=== PATIENT | male | born 1935 | race Caucasian/White ===

== ENCOUNTER 2020-06-07 14:34 | Inpatient (IN) ==
[2020-06-07] MEDS ORDERED: LACTATED RINGERS 1,000 ML IV ONE (15:05)
--- NOTE | 2020-06-07 15:09 | Emergency Department Note ---
Weakness HPI General Chief complaint: Weakness Stated complaint: Weakness since 1030. Time Seen by Provider: 06/07/20 15:00 Source: patient, family and RN notes reviewed Mode of arrival: wheelchair Limitations: altered mental status History of Present Illness HPI Narrative: Narrative: This is a demented male brought in by his who has been feeling generalized weakness for about the last 6 hours. He is incontinent of urine and noted blood in his depends. He does not complain of pain. He has had no cough or shortness of breath. He does have a temperature here as high as 104. No nausea or vomiting. Complaint: generalized weakness Onset (ago): hour(s) Duration: constant Location: generalized Migration: none Severity: moderate Improves with: none Worsens with: none Associated symptoms: Reports confusion; Denies chest pain, diaphoresis, dysuria, nausea/vomiting and shortness of breath Related Data Home Medications Medication Instructions Recorded Confirmed grape seed extract PO QDAY 05/05/18 06/05/20 turmeric root extract PO BID 05/05/18 06/05/20 donepezil 5 mg tablet 10 mg PO QDAY tab 07/26/19 06/05/20 fluticasone propionate INTRANASAL PRN 07/26/19 06/05/20 multivitamin 1 tab PO QDAY 07/26/19 06/05/20 Previous Rx's Medication Instructions Recorded tamsulosin 0.4 mg capsule 0.4 mg PO QDAY #90 cap 12/20/19 lisinopril 10 mg tablet 10 mg PO QDAY #90 tab 02/15/20 acyclovir 800 mg tablet 800 mg PO 5XD #35 tab 04/03/20 memantine 10 mg tablet 10 mg PO BID #180 tab 05/15/20 levothyroxine 75 mcg tablet 75 mcg PO QDAY #90 tab 05/30/20 Allergies Allergy/AdvReac Type Severity Reaction Status Date / Time hydrocodone Allergy Unknown Nausea Verified 06/05/20 13:01 Review of Systems ROS ROS Narrative: Narrative: Limitations: ROS unobtainable due to patients medical condition [facility] Narrative Patient History Narrative: Narrative: Medical/Surgical/Family History All Active Problems (Updated 06/07/20 @ 19:17 by Estuardo Lindquist MD) Pneumonia (Acute) Urinary tract infection (Acute) Annual physical exam (Acute) Parkinsonism (Acute) Medicare annual wellness visit, initial (Acute) Herpes zoster with ophthalmic complication (Acute) Herpes zoster ophthalmicus (Acute) Generalized weakness (Acute) Cellulitis (Acute) Skin tear of left forearm without complication (Acute) Dementia (Chronic) Hx of vasectomy (Acute) Hx of tonsillectomy (Acute) Hx of inguinal hernia repair (Acute) Hx of esophagogastroduodenoscopy (Acute) Closed rib fracture (Acute) Hypothyroidism (Acute) Hypertension, essential (Acute) Hyperlipidemia (Acute) Closed fracture of foot (Acute) Medical History (Updated 06/07/20 @ 19:17 by Estuardo Lindquist MD) Annual physical exam (Acute) Closed fracture of foot (Acute) left Closed rib fracture (Acute) Dementia (Chronic) Herpes zoster ophthalmicus (Acute) Herpes zoster with ophthalmic complication (Acute) Hyperlipidemia (Acute) Hypertension, essential (Acute) Hypothyroidism (Acute) Medicare annual wellness visit, initial (Acute) Parkinsonism (Acute) Surgical History Hx of esophagogastroduodenoscopy (Acute) Hx of inguinal hernia repair (Acute) Hx of tonsillectomy (Acute) Hx of vasectomy (Acute) Family History Mother Malignant neoplasm of pancreas Unknown No family history of cardiac disease Social History Smoking Status: Never smoker Alcohol Intake Frequency: a few times a week Substance Use: does not use Exam Narrative Narrative: Narrative: General Limitations: altered mental status Head Head: Present atraumatic, normocephalic and normal inspection Eye Eye: Present normal appearance and EOMI; Absent scleral icterus and conjunctival injection ENT ENT: Present normal oropharynx and mucous membranes moist Neck Neck: Present normal inspection and full ROM Chest Chest: Present normal inspection and symmetric chest wall rise Respiratory Respiratory: Present normal lung sounds bilaterally; Absent respiratory distress, rales/crackles and wheezes Cardiovascular Cardiovascular: Present regular rate, normal rhythm and normal heart sounds Adbominal Abdominal: Present soft; Absent distention and tenderness Extremities Extremities: Present normal inspection and full ROM; Absent pedal edema and pretibial edema Neurological Neurological: Present alert Skin Skin: Present warm (WNL) and dry; Absent diaphoresis Course Vital Signs Vital signs: Vital Signs Temperature 104.2 F H 06/07/20 14:35 Pulse Rate 108 H 06/07/20 14:35 Respiratory Rate 22 06/07/20 14:35 Blood Pressure 138/82 06/07/20 14:35 Pulse Oximetry (%) 97 06/07/20 14:35 Temperature 102.0 F H 06/07/20 17:52 Pulse Rate 79 06/07/20 17:13 Respiratory Rate 16 06/07/20 17:13 Blood Pressure 141/86 06/07/20 17:13 Pulse Oximetry (%) 97 06/07/20 14:35 MDM MDM Narrative Medical decision making narrative: Narrative: This patient has urosepsis and pneumonia and will be admitted to the hospital by Dr. Abarca. Lab Data Lab results reviewed: Yes I reviewed the patient's lab results. Lab results narrative: White count was elevated at 17,000 and lactic acid was negative. Urinalysis also consistent with UTI. Result diagrams: 06/07/20 15:22 06/07/20 15:22 Labs: Lab Results 06/07/20 06/07/20 06/07/20 Range/Units 15:22 15:22 15:22 WBC 17.0 H (4.5-11.0) K/mcL RBC 4.90 (4.50-5.90) M/mcL Hgb 15.4 (13.5-16.5) g/dL Hct 45.4 (41.0-55.0) % MCV 92.7 (80.0-100.0) fL MCH 31.4 (26.0-34.0) pg MCHC 33.9 (31.0-36.0) g/dL RDW 13.3 (11.5-14.5) % Plt Count 242 (140-440) K/mcL MPV 10.0 (7.4-10.4) fL Neut % (Auto) 85.0 H (38.0-78.0) % Lymph % (Auto) 6.2 L (15.0-49.0) % [place] % (Auto) 7.5 (1.0-12.0) % Eos % (Auto) 0.8 (0.0-7.0) % Baso % (Auto) 0.5 (0.0-2.0) % Lymph # (Auto) 1.05 L (1.50-4.80) K/mcL [place] # (Auto) 1.28 H (0.10-0.90) K/mcL Eos # (Auto) 0.13 (0.00-0.70) K/mcL Baso # (Auto) 0.09 (0.00-0.20) K/mcL Absolute Neutrophils 14.42 H (1.80-8.00) K/mcL VBG Lactic Acid 1.5 (0.5-2.0) mmol/L Sodium 136 (133-145) mmol/L Potassium 4.3 (3.3-5.1) mmol/L Chloride 99 (96-108) mmol/L Carbon Dioxide 24 (22-30) mmol/L Anion Gap 13.0 (8.0-16.0) BUN 17 (8-23) mg/dL Creatinine 1.0 (0.7-1.2) mg/dL GFR Calculation 69 Glucose 107 H (70-105) mg/dL Calcium 9.2 (8.6-10.4) mg/dL Total Bilirubin 0.4 (0.1-1.0) mg/dL AST 17 (<40) U/L ALT 8 (<40) U/L Alkaline Phosphatase 77 (39-117) U/L Total Protein 7.7 (5.9-8.4) gm/dL Albumin 4.4 (3.2-5.2) gm/dL Globulin 3.3 (2.2-3.7) gm/dL Albumin/Globulin Ratio 1.3 (1.0-2.3) Urine Color Urine Appearance (Clear) Urine pH (5.0-9.0) Ur Specific [place] (1.000-1.035) Urine Protein (Negative) mg/dL Urine Glucose (UA) (Negative) mg/dL Urine Ketones (Negative) mg/dL Urine Occult Blood (Negative) mg/dL Urine Nitrate (Negative) Urine Bilirubin (Negative) mg/dL Urine Urobilinogen mg/dL Ur Leukocyte Esterase (Negative) /ug Urine RBC (0-1) /hpf Urine WBC (0-4) /hpf Ur Squamous Epith Cells (0-4) /hpf Amorphous Crystals (None) /hpf Urine Bacteria (0) /hpf Urine Mucus (None) /hpf Ur Culture Indicated? 06/07/20 Range/Units 16:23 WBC (4.5-11.0) K/mcL RBC (4.50-5.90) M/mcL Hgb (13.5-16.5) g/dL Hct (41.0-55.0) % MCV (80.0-100.0) fL MCH (26.0-34.0) pg MCHC (31.0-36.0) g/dL RDW (11.5-14.5) % Plt Count (140-440) K/mcL MPV (7.4-10.4) fL Neut % (Auto) (38.0-78.0) % Lymph % (Auto) (15.0-49.0) % [place] % (Auto) (1.0-12.0) % Eos % (Auto) (0.0-7.0) % Baso % (Auto) (0.0-2.0) % Lymph # (Auto) (1.50-4.80) K/mcL [place] # (Auto) (0.10-0.90) K/mcL Eos # (Auto) (0.00-0.70) K/mcL Baso # (Auto) (0.00-0.20) K/mcL Absolute Neutrophils (1.80-8.00) K/mcL VBG Lactic Acid (0.5-2.0) mmol/L Sodium (133-145) mmol/L Potassium (3.3-5.1) mmol/L Chloride (96-108) mmol/L Carbon Dioxide (22-30) mmol/L Anion Gap (8.0-16.0) BUN (8-23) mg/dL Creatinine (0.7-1.2) mg/dL GFR Calculation Glucose (70-105) mg/dL Calcium (8.6-10.4) mg/dL Total Bilirubin (0.1-1.0) mg/dL AST (<40) U/L ALT (<40) U/L Alkaline Phosphatase (39-117) U/L Total Protein (5.9-8.4) gm/dL Albumin (3.2-5.2) gm/dL Globulin (2.2-3.7) gm/dL Albumin/Globulin Ratio (1.0-2.3) Urine Color Yellow Urine Appearance Hazy A (Clear) Urine pH 5.0 (5.0-9.0) Ur Specific [place] 1.018 (1.000-1.035) Urine Protein 100 A (Negative) mg/dL Urine Glucose (UA) Negative (Negative) mg/dL Urine Ketones Negative (Negative) mg/dL Urine Occult Blood >=1.0 A (Negative) mg/dL Urine Nitrate Negative (Negative) Urine Bilirubin Negative (Negative) mg/dL Urine Urobilinogen Negative mg/dL Ur Leukocyte Esterase 75 A (Negative) /ug Urine RBC > 182 H (0-1) /hpf Urine WBC 111 H (0-4) /hpf Ur Squamous Epith Cells 0 (0-4) /hpf Amorphous Crystals Few A (None) /hpf Urine Bacteria None (0) /hpf Urine Mucus Mod A (None) /hpf Ur Culture Indicated? yes Radiology Data Radiology results reviewed: Yes I reviewed the patient's radiology results. Radiology results narrative: Chest x-ray shows some bibasilar infiltrates Discharge Plan Patient/Caregiver Discharge Instructions Pt seen by DIRECTOR OF QUALITY/PA only: No Clinical Impression: Pneumonia, Urinary tract infection Patient Disposition: Xfer As Outpt/Obs ([facility]) Follow up with: Nathan Mcdonough MD [Primary Care Provider] - Prescriptions: No Action tamsulosin [Flomax] 0.4 mg capsule 0.4 mg PO QDAY Qty: 90 RF: 1 lisinopril [Prinivil] 10 mg tablet 10 mg PO QDAY Qty: 90 RF: 1 memantine [Namenda] 10 mg tablet 10 mg PO BID Qty: 180 RF: 1 levothyroxine [Synthroid] 75 mcg tablet 75 mcg PO QDAY Qty: 90 RF: 1 turmeric root extract PO BID RF: 0 grape seed extract PO QDAY RF: 0 donepezil 5 mg tablet 10 mg PO QDAY RF: 0 multivitamin tablet 1 tab PO QDAY RF: 0 fluticasone propionate intranasal PRNRF: 0 acyclovir 800 mg tablet 800 mg PO 5XD Qty: 35 RF: 0
--- NOTE | 2020-06-07 15:49 | XRay Report ---
CLINICAL INFORMATION: fever COMPARISON: 03/28/2020 FINDINGS: Mild cardiomegaly is unchanged. Mild thoracic aortic ectasia also stable. The remaining mediastinum and pulmonary vessels are normal. Mild bilateral lower lobe airspace disease could indicate developing infiltrate. No effusion IMPRESSION: Possible developing lower lobe infiltrates. Interpreted and Authenticated by: Elie Torrez 06/07/20
[2020-06-07 16:14] LABS: Basophils # (Auto) 0.09 K/mcL (0.00-0.20); Basophils % (Auto) 0.5 % (0.0-2.0); Eosinophils # (Auto) 0.13 K/mcL (0.00-0.70); Eosinophils % (Auto) 0.8 % (0.0-7.0); Hematocrit 45.4 % (41.0-55.0); Hemoglobin 15.4 g/dL (13.5-16.5); Lymphocytes # (Auto) 1.05 K/mcL (1.50-4.80); Lymphocytes % (Auto) 6.2 % (15.0-49.0); Mean Cell Volume 92.7 fL (80.0-100.0); Mean Corpuscular HGB Conc 33.9 g/dL (31.0-36.0); Monocytes # (Auto) 1.28 K/mcL (0.10-0.90); Monocytes % (Auto) 7.5 % (1.0-12.0); Platelet Count 242 K/mcL (140-440); Red Cell Distribution Width 13.3 % (11.5-14.5)
[2020-06-07] MEDS ORDERED: LEVOFLOXACIN 750 MG/150 ML BAG IV ONE (16:28)
[2020-06-07] MEDS ORDERED: cefTRIAXone 1 GM VIAL IV ONE ×2 (16:28→22:02)
[2020-06-07 16:33] LABS: ALT/SGPT 8 U/L (<40); AST/SGOT 17 U/L (<40); Albumin 4.4 gm/dL (3.2-5.2); Albumin/Globulin Ratio 1.3 (1.0-2.3); Alkaline Phosphatase 77 U/L (39-117); Bilirubin,Total 0.4 mg/dL (0.1-1.0); Blood Urea Nitrogen 17 mg/dL (8-23); Calcium 9.2 mg/dL (8.6-10.4); Carbon Dioxide 24 mmol/L (22-30); Chloride 99 mmol/L (96-108); Globulin 3.3 gm/dL (2.2-3.7); Glomerular Filtration Rate 69; Glucose 107 mg/dL (70-105)
[2020-06-07] MEDS ORDERED: ACETAMINOPHEN 325 MG TABLET PO ONE (17:30)
[2020-06-07 17:50] LABS: Appearance,Urine HAZY (Clear); Bilirubin,Urine Negative (Negative); Color,Urine YELLOW; Culture Indicated,Urine yes; Glucose,Urine (UA) Negative (Negative); Ketones,Urine Negative (Negative); Leukocyte Esterase,Urine 75 /ug (Negative); Mucus,Urine MOD /hpf; Nitrate,Urine Negative (Negative); Protein,Urine 100 mg/dL (Negative); Specific Gravity,Urine 1.018 (1.000-1.035); Urine Amorphous Crystals FEW /hpf; Urine Blood >=1.0 mg/dL (Negative); Urine RBC > 182 /hpf (0-1); Urine Squamous Epithelial Cell 0 /hpf (0-4); Urine WBC 111 /hpf (0-4); Urobilinogen,Urine Negative
--- NOTE | 2020-06-07 19:04 | Internal Med History&Physical ---
HPI History of Present Illness Patient information: Note initiated : 06/07/20 at 7:04 pm Service Date, if different from initiated Date: [] Patient: Kristi Kennedy a 84 y/o M admitted on for Weakness Since 1030. Chief Complaint: Shaking chills, weakness History of present illness: Mr. Kennedy is a 84 year old M with a history of dementia/hypertension who lives with his Shelbie in a trailer. He was in his baseline state of health until this morning while coming out of the trailer patient started experiencing shaking chills. patient is normally incontinent and uses depends. Shelbie later found blood in his diapers. Over the next few hours patient became increasingly weak confused and lethargic. Patient was brought in for further evaluation. Initial work-up in the ER was consistent with complicated UTI, fever 104, white count 17,000 consistent with sepsis with endorgan dysfunction. Cultures were drawn and antibiotics initiated. Patient was started on crystalloids and subsequently hospitalist service was consulted At the time of my evaluation patient is accompanied with his Shelbie. She is able to answer most the question. Patient has underlying dementia and unable to provide a detailed history. However he was able to provide answers review of systems and denies diarrhea, headache, photophobia endorses to myalgia, shaking chills and fever. Review of systems A 10 point review system was performed and is negative except for ones discussed above PFSH PFSH All Active Problems (Updated 06/07/20 @ 19:17 by Estuardo Lindquist MD) Pneumonia (Acute) Urinary tract infection (Acute) Annual physical exam (Acute) Parkinsonism (Acute) Medicare annual wellness visit, initial (Acute) Herpes zoster with ophthalmic complication (Acute) Herpes zoster ophthalmicus (Acute) Generalized weakness (Acute) Cellulitis (Acute) Skin tear of left forearm without complication (Acute) Dementia (Chronic) Hx of vasectomy (Acute) Hx of tonsillectomy (Acute) Hx of inguinal hernia repair (Acute) Hx of esophagogastroduodenoscopy (Acute) Closed rib fracture (Acute) Hypothyroidism (Acute) Hypertension, essential (Acute) Hyperlipidemia (Acute) Closed fracture of foot (Acute) Medical History (Updated 06/07/20 @ 19:17 by Estuardo Lindquist MD) Annual physical exam (Acute) Closed fracture of foot (Acute) left Closed rib fracture (Acute) Dementia (Chronic) Herpes zoster ophthalmicus (Acute) Herpes zoster with ophthalmic complication (Acute) Hyperlipidemia (Acute) Hypertension, essential (Acute) Hypothyroidism (Acute) Medicare annual wellness visit, initial (Acute) Parkinsonism (Acute) Surgical History Hx of esophagogastroduodenoscopy (Acute) Hx of inguinal hernia repair (Acute) Hx of tonsillectomy (Acute) Hx of vasectomy (Acute) Family History Mother Malignant neoplasm of pancreas Unknown No family history of cardiac disease Social History (Updated 02/02/20 @ 11:56 by Yumiko Zimmer DO) occupational status: employed occupation: department store general manager for [employer] smoking status: Never smoker alcohol intake frequency: a few times a week substance use type: does not use MEDS/ALLERGIES Home Medications and Allergies Home Medications Medication Instructions Recorded Confirmed Type grape seed extract PO QDAY 05/05/18 06/05/20 History turmeric root extract PO BID 05/05/18 06/05/20 History donepezil 5 mg tablet 10 mg PO QDAY tab 07/26/19 06/05/20 History fluticasone propionate INTRANASAL PRN 07/26/19 06/05/20 History multivitamin 1 tab PO QDAY 07/26/19 06/05/20 History tamsulosin 0.4 mg capsule 0.4 mg PO QDAY #90 cap 12/20/19 06/05/20 Rx lisinopril 10 mg tablet 10 mg PO QDAY #90 tab 02/15/20 06/05/20 Rx memantine 10 mg tablet 10 mg PO BID #180 tab 05/15/20 06/05/20 Rx levothyroxine 75 mcg tablet 75 mcg PO QDAY #90 tab 05/30/20 06/05/20 Rx Allergies Allergy/AdvReac Type Severity Reaction Status Date / Time hydrocodone Allergy Unknown Nausea Verified 06/05/20 13:01 EXAM Constitutional Vitals: Temp Pulse Resp BP Pulse Ox 102.0 F H 79 16 141/86 97 06/07/20 17:52 06/07/20 17:13 06/07/20 17:13 06/07/20 17:13 06/07/20 14:35 [place] normocephalic Oral cavity moist No ear nose discharge Eye movement symmetrical Neck supple no lymphadenopathy S1-S2 regular, ESM grade 1 Nonlabored breathing Nondistended nontender abdomen Lower extremity no cyanosis clubbing or joint swelling Skin no suspicious lesion Psych anxious but alert cooperative Neuro Baseline dementia, no focal deficits DATA Data Completed and Pending Labs: Labs from last 24 hours 06/07/20 06/07/20 06/07/20 16:23 15:22 15:22 WBC RBC Hgb Hct MCV MCH MCHC RDW Plt Count MPV Neut % (Auto) Lymph % (Auto) [place] % (Auto) Eos % (Auto) Baso % (Auto) Lymph # (Auto) [place] # (Auto) Eos # (Auto) Baso # (Auto) Absolute Neutrophils VBG Lactic Acid 1.5 Sodium 136 Potassium 4.3 Chloride 99 Carbon Dioxide 24 Anion Gap 13.0 BUN 17 Creatinine 1.0 GFR Calculation 69 Glucose 107 H Calcium 9.2 Total Bilirubin 0.4 AST 17 ALT 8 Alkaline Phosphatase 77 Total Protein 7.7 Albumin 4.4 Globulin 3.3 Albumin/Globulin Ratio 1.3 Urine Color Yellow Urine Appearance Hazy A Urine pH 5.0 Ur Specific [place] 1.018 Urine Protein 100 A Urine Glucose (UA) Negative Urine Ketones Negative Urine Occult Blood >=1.0 A Urine Nitrate Negative Urine Bilirubin Negative Urine Urobilinogen Negative Ur Leukocyte Esterase 75 A Urine RBC > 182 H Urine WBC 111 H Ur Squamous Epith Cells 0 Amorphous Crystals Few A Urine Bacteria None Urine Mucus Mod A Ur Culture Indicated? yes 06/07/20 15:22 WBC 17.0 H RBC 4.90 Hgb 15.4 Hct 45.4 MCV 92.7 MCH 31.4 MCHC 33.9 RDW 13.3 Plt Count 242 MPV 10.0 Neut % (Auto) 85.0 H Lymph % (Auto) 6.2 L [place] % (Auto) 7.5 Eos % (Auto) 0.8 Baso % (Auto) 0.5 Lymph # (Auto) 1.05 L [place] # (Auto) 1.28 H Eos # (Auto) 0.13 Baso # (Auto) 0.09 Absolute Neutrophils 14.42 H VBG Lactic Acid Sodium Potassium Chloride Carbon Dioxide Anion Gap BUN Creatinine GFR Calculation Glucose Calcium Total Bilirubin AST ALT Alkaline Phosphatase Total Protein Albumin Globulin Albumin/Globulin Ratio Urine Color Urine Appearance Urine pH Ur Specific [place] Urine Protein Urine Glucose (UA) Urine Ketones Urine Occult Blood Urine Nitrate Urine Bilirubin Urine Urobilinogen Ur Leukocyte Esterase Urine RBC Urine WBC Ur Squamous Epith Cells Amorphous Crystals Urine Bacteria Urine Mucus Ur Culture Indicated? A/P Narrative A/P Narrative: * Severe sepsis with endorgan dysfunction. Secondary to complicated UTI. Pancultures/antibiotic/crystalloids * Complicated UTI continue antibiotic coverage. De-escalate based on sensitivities * Hematuria-renal ultrasound to rule out obstructive uropathy/renal mass. If persistent consult urology * Dementia continue cefazolin * BPH continue tamsulosin * Hypothyroid continue thyroxine * History of hypertension start lisinopril once systolic over 140. * History of shingles. Recent flare * DNR * Prophylax Heparin Plan * Inpatient admission * Antibiotic coverage * Renal ultrasound * If persistent hematuria urology consult * Pre-existing medical condition management home meds * Delirium and fall watch * PT OT nutrition support Time Spent With Patient Time: Total time spent is greater than 50% in coordination of care (as documented) at patient's floor/unit and/or counseling patient:
[2020-06-07] MEDS ORDERED: 0.9 % SODIUM CHLORIDE 1,000 ML IV SCH (21:11)
[2020-06-07] MEDS ORDERED: ONDANSETRON 4 MG/2 ML VIAL IV PRN (21:11)
[2020-06-07] MEDS ORDERED: ONDANSETRON 4 MG ODT TABLET SL PRN (21:11)
[2020-06-07] MEDS ORDERED: BISACODYL 10 MG SUPP.RECT PR PRN (21:11)
[2020-06-07] MEDS ORDERED: POLYETHYLENE GLYCOL 3350 17 GM PACKET PO PRN (21:11)
[2020-06-07] MEDS ORDERED: MAGNESIUM SULFATE 2 GM/50 ML BAG IV PRN (21:11)
[2020-06-07] MEDS ORDERED: ACETAMINOPHEN 325 MG TABLET PO PRN (21:11)
[2020-06-07] MEDS ORDERED: POTASSIUM CHLORIDE 40 MEQ in DEXTROSE 5% IN WATER 500 ML IV PRN (21:11)
[2020-06-07] MEDS ORDERED: POTASSIUM CHLORIDE 20 MEQ PACKET PO PRN (21:11)
[2020-06-07] MEDS ORDERED: ACETAMINOPHEN 650 MG/65 ML BOTTLE IV PRN (21:11)
[2020-06-07] MEDS: HEPARIN 5,000 UNIT/ML VIAL SQ SCH (22:02)
[2020-06-07] MEDS: SENNOSIDES/DOCUSATE SODIUM 1 TAB TABLET PO SCH (22:03)
[2020-06-07] MEDS: DOCUSATE SODIUM 100 MG CAPSULE PO SCH (22:03)
[2020-06-07] MEDS ORDERED: cefTRIAXone 1 GM VIAL ONE (22:21)
[2020-06-07] MEDS: cefTRIAXone 2 GM in DEXTROSE 5% IN WATER 50 ML IV SCH (22:38)
[2020-06-07] MEDS: 0.9 % SODIUM CHLORIDE 10 ML SYRINGE IV SCH (22:39)
[2020-06-07] MEDS: 0.9 % SODIUM CHLORIDE 1,000 ML IV SCH (23:26)
--- NOTE | 2020-06-08 05:15 | Ultrasound Report ---
CLINICAL INFORMATION: Hematuria COMPARISON: None. FINDINGS: Both kidneys are normal and symmetric in size, position and configuration: The right is 10 x 6 cm and the left is 10.9 x 5.8 cm. Renal echotexture is mildly elevated compatible with medical renal disease. There is a 1.7 cm simple cyst in the inferior pole the right kidney. No stones, hydronephrosis or solid lesions. Urinary bladder volume 154 cc with a 8 cc post void residual. There is moderate diffuse bladder wall thickening. The prostate is markedly enlarged: Volume 113cc. IMPRESSION: Mild hyperechoic kidneys compatible with medical renal disease. No hydronephrosis to suggest obstructive uropathy. Markedly enlarged prostate. There is diffuse urinary bladder wall thickening suggesting chronic bladder outlet narrowing. Surprisingly, no significant post void residual. Consider formal pre and post void urinary bladder volume Interpreted and Authenticated by: Elie Torrez 06/08/20
[2020-06-08] MEDS: 0.9 % SODIUM CHLORIDE 10 ML SYRINGE IV SCH ×4 (06:41→21:06)
[2020-06-08] MEDS: LISINOPRIL 10 MG TABLET PO SCH (09:35)
[2020-06-08] MEDS: TAMSULOSIN 0.4 MG CAPSULE PO SCH (09:36)
[2020-06-08] MEDS: MEMANTINE 10 MG TABLET PO SCH ×2 (09:36→21:05)
[2020-06-08] MEDS: DOCUSATE SODIUM 100 MG CAPSULE PO SCH ×2 (09:36→21:05)
[2020-06-08] MEDS: HEPARIN 5,000 UNIT/ML VIAL SQ SCH ×2 (09:36→21:05)
[2020-06-08] MEDS: LEVOTHYROXINE 75 MCG TABLET PO SCH (09:37)
[2020-06-08 10:28] LABS: Hematocrit 38.3 % (41.0-55.0); Hemoglobin 12.9 g/dL (13.5-16.5); Lymphocytes % 10 % (15-49); Mean Cell Volume 92.3 fL (80.0-100.0); Mean Corpuscular HGB Conc 33.7 g/dL (31.0-36.0); Mean Platelet Volume 10.5 fL (7.4-10.4); Monocytes % (Manual) 8 % (1-12); Platelet Count 183 K/mcL (140-440); Platelet Estimate NORMAL (Normal); RBC 4.15 M/mcL (4.50-5.90); RBC Morphology NORMAL (Normal); Red Cell Distribution Width 13.4 % (11.5-14.5); Segmented Neutrophils % 82 % (38-78); WBC 13.5 K/mcL (4.5-11.0)
[2020-06-08 10:29] LABS: ALT/SGPT 6 U/L (<40); AST/SGOT 12 U/L (<40); Albumin 3.4 gm/dL (3.2-5.2); Albumin/Globulin Ratio 1.3 (1.0-2.3); Alkaline Phosphatase 60 U/L (39-117); Bilirubin,Direct < 0.2 mg/dL (<0.3); Bilirubin,Total 0.6 mg/dL (0.1-1.0); Blood Urea Nitrogen 14 mg/dL (8-23); Calcium 8.7 mg/dL (8.6-10.4); Carbon Dioxide 24 mmol/L (22-30); Chloride 104 mmol/L (96-108); Globulin 2.6 gm/dL (2.2-3.7); Glomerular Filtration Rate 78; Glucose 97 mg/dL (70-105); Lactate Dehydrogenase 172 U/L (135-225); Phosphorous 2.2 mg/dL (2.5-4.5); Triglycerides 54 mg/dL (<150); Uric Acid 3.9 mg/dL (2.5-8.0)
--- NOTE | 2020-06-08 11:11 | Internal Med Progress Note ---
SUBJECTIVE Subjective Patient information: Note initiated : 06/08/20 at 11:07 am Service Date, if different from initiated Date: [] Patient: Kristi Kennedy a 84 y/o M admitted on 06/07/20 for Weakness Since 1030. Chief Complaint: History of present illness: Mr. Kennedy is a 84 year old M with a history of dementia/hypertension who lives with his Shelbie in a trailer. He was in his baseline state of health until this morning while coming out of the trailer patient started experiencing shaking chills. patient is normally incontinent and uses depends. Shelbie later found blood in his diapers. Over the next few hours patient became increasingly weak confused and lethargic. Patient was brought in for further evaluation. Initial work-up in the ER was consistent with complicated UTI, fever 104, white count 17,000 consistent with sepsis with endorgan dysfunction. Cultures were drawn and antibiotics initiated. Patient was started on crystalloids and subsequently hospitalist service was consulted At the time of my evaluation patient is accompanied with his Shelbie. She is able to answer most the question. Patient has underlying dementia and unable to provide a detailed history. However he was able to provide answers review of systems and denies diarrhea, headache, photophobia endorses to myalgia, shaking chills and fever. 06/08-patient clinically improving. White count down to 13.5. Gram-negative martín on blood cultures. Likely source urinary infection. Renal ultrasound no evidence of obstructive uropathy. Stable hemodynamics. T-max 104.2. Map at goal. Continue antibiotic coverage and de-escalate based on sensitivities. Constitutional Vitals: Vital Signs Temp Pulse Resp BP Pulse Ox 99.5 F H 67 14 144/76 94 06/08/20 04:40 06/08/20 04:40 06/08/20 04:40 06/08/20 04:40 06/08/20 04:40 Period Temp Pulse Resp BP Sys/Calvin Pulse Ox Last 24 Hr 98.3 F-104.2 F 62-108 12-22 128-158/74-86 94-97 Intake and Output 06/07/20 06/08/20 06/08/20 21:59 05:59 13:59 Intake Total 1150 1100 Output Total 3 Balance 1150 1097 Weight 61.008 kg at bedside Underlying dementia/confused but no agitation or hallucination Nonlabored breathing Sitting on chair Intake & Output: Intake & Output 06/07/20 06/08/20 06/08/20 21:59 05:59 13:59 Intake Total 1150 1100 Output Total 3 Balance 1150 1097 Weight 61.008 kg Intake: IV 1150 1000 Sodium Chloride 0.9% 1,000 ml @ 1000 Wide Open IV BOLUS [facility] Rx#: [id number] Lactated Ringers 1,000 ml @ 1000 Wide Open IV BOLUS [facility] Rx#: [id number] Oral 100 Output: # of times incontinent of urine 3 Other: Urine Appearance Straight Hematuria Urine Color Straight [place] OBJ DATA Labs CBC & Chem 7: 06/08/20 05:32 06/08/20 05:32 Labs: Abnormal Lab Results 06/08/20 06/08/20 06/07/20 05:32 05:32 16:23 WBC 13.5 H RBC 4.15 L Hgb 12.9 L Hct 38.3 L MPV 10.5 H Neut % (Auto) Lymph % (Auto) Lymph # (Auto) [place] # (Auto) Seg Neutrophils % 82 H Lymphocytes % 10 L Absolute Neutrophils Glucose Phosphorus 2.2 L GGT 6 L Urine Appearance Hazy A Urine Protein 100 A Urine Occult Blood >=1.0 A Ur Leukocyte Esterase 75 A Urine RBC > 182 H Urine WBC 111 H Amorphous Crystals Few A Urine Mucus Mod A 06/07/20 06/07/20 15:22 15:22 WBC 17.0 H RBC Hgb Hct MPV Neut % (Auto) 85.0 H Lymph % (Auto) 6.2 L Lymph # (Auto) 1.05 L [place] # (Auto) 1.28 H Seg Neutrophils % Lymphocytes % Absolute Neutrophils 14.42 H Glucose 107 H Phosphorus GGT Urine Appearance Urine Protein Urine Occult Blood Ur Leukocyte Esterase Urine RBC Urine WBC Amorphous Crystals Urine Mucus Meds: Medications Acetaminophen (Tylenol) 650 mg PO Q4-6HP PRN; Protocol PRN Reason: Per Pain Protocol/Fever > 101 Bisacodyl (Dulcolax) 10 mg [place] Q2-3DAYS PRN PRN Reason: Constipation Docusate Sodium (Colace) 100 mg PO BID [facility] Last Admin: 06/08/20 09:36 Dose: 100 mg Documented by: Donepezil HCl (Aricept) 10 mg PO QDAY [facility] Heparin Sodium (Porcine) (Heparin) 5,000 unit SQ Q12 [facility] Last Admin: 06/08/20 09:36 Dose: 5,000 unit Documented by: Potassium Chloride 40 meq/ (Dextrose) 520 mls @ 130 mls/hr IV UD PRN PRN Reason: K+ = or < 3.5 Acetaminophen (Ofirmev) 650 mg in 65 mls @ 130 mls/hr IV Q6HP PRN; Protocol PRN Reason: Per Pain Protocol/Fever > 101 Magnesium Sulfate (Magnesium Sulfate) 2 gm in 50 mls @ 50 mls/hr IV UD PRN PRN Reason: MG = or < 1.7 Sodium Chloride (Sodium Chloride 0.9%) 1,000 mls @ 50 mls/hr IV .Q20H [facility] Stop: 06/10/20 09:10 Last Admin: 06/07/20 23:26 Dose: 50 mls/hr Documented by: Sodium Chloride (Sodium Chloride 0.9%) 1,000 mls @ 0 mls/hr IV BOLUS [facility] Last Infusion: 06/07/20 23:03 Dose: Infused Documented by: Ceftriaxone Sodium 2 gm/ (Dextrose) 50 mls @ 100 mls/hr IV DAILY [facility]; Protocol Last Admin: 06/07/20 22:38 Dose: Not Given Documented by: Levofloxacin (Levaquin) 750 mg in 150 mls @ 100 mls/hr IV Q48H [facility]; Protocol Iron Carb/Multivit/[place]/Folic Acid (Multivitamin W/Minerals) 1 tab PO DAILY [facility] Levothyroxine Sodium (Synthroid) 75 mcg PO ACB [facility] Last Admin: 06/08/20 09:37 Dose: 75 mcg Documented by: Lisinopril (Zestril) 10 mg PO QDAY [facility] Last Admin: 06/08/20 09:35 Dose: 10 mg Documented by: Melatonin (Melatonin 3mg Tablet) 3 mg PO HSP PRN PRN Reason: Insomnia Memantine (Namenda) 10 mg PO BID [facility] Last Admin: 06/08/20 09:36 Dose: 10 mg Documented by: Ondansetron HCl (Zofran Odt) 4 mg SL Q4-6HP PRN; Protocol PRN Reason: Nausea And Vomiting Ondansetron HCl (Zofran) 4 mg IV Q4-6HP PRN; Protocol PRN Reason: Nausea And Vomiting Polyethylene Glycol (Miralax) 17 gm PO DAILYP PRN PRN Reason: Constipation Potassium Chloride (Klor-Con) 40 meq PO DAILYP PRN PRN Reason: K+ < 3.5 Senna/Docusate Sodium (Senna Plus Tablet) 1 tab PO HS [facility] Last Admin: 06/07/20 22:03 Dose: 1 tab Documented by: Sodium Chloride (Saline Flush) 10 ml IV Q8 [facility] Last Admin: 06/08/20 06:41 Dose: Not Given Documented by: Tamsulosin HCl (Flomax) 0.4 mg PO QDAY [facility] Last Admin: 06/08/20 09:36 Dose: 0.4 mg Documented by: A/P Narrative A/P Narrative: * Severe sepsis with endorgan dysfunction. Clinically improving. White count downtrending to 13.5 from 17 point 7K * Gram-negative bacteremia-on antibiotic coverage. De-escalate based on sensitivities. * Complicated E. coli UTI continue antibiotic coverage. Renal ultrasound negative for obstructive uropathy. * Hematuria-renal ultrasound no evidence of mass lesion or obstructive uropathy * Dementia continue donepezil/memantine * BPH on tamsulosin * Hypothyroid continue thyroxine * History of hypertension continue lisinopril once systolic over 140. * History of shingles. * Full code * Prophylax Heparin Plan * Antibiotic coverage and de-escalate based on sensitivities * Pre-existing medical condition management home meds * Delirium and fall watch * PT OT nutrition support * Discharge planning Time Spent With Patient Time: Total time spent is greater than 50% in coordination of care (as documented) at patient's floor/unit and/or counseling patient: QUALITY VTE Deep Vein Thrombosis/Pulmonary Embolism Present on Admission: No
[2020-06-08] MEDS: cefTRIAXone 2 GM in DEXTROSE 5% IN WATER 50 ML IV SCH (13:43)
[2020-06-08] MEDS: 0.9 % SODIUM CHLORIDE 1,000 ML IV SCH ×2 (16:04→20:06)
[2020-06-08] MEDS: SENNOSIDES/DOCUSATE SODIUM 1 TAB TABLET PO SCH (21:05)
[2020-06-09] MEDS: 0.9 % SODIUM CHLORIDE 10 ML SYRINGE IV SCH ×3 (05:28→22:56)
[2020-06-09] MEDS: LEVOTHYROXINE 75 MCG TABLET PO SCH (07:33)
[2020-06-09] MEDS: LISINOPRIL 10 MG TABLET PO SCH (10:14)
[2020-06-09] MEDS: MEMANTINE 10 MG TABLET PO SCH ×2 (10:14→21:29)
[2020-06-09] MEDS: DONEPEZIL 10 MG TABLET PO SCH (10:14)
[2020-06-09] MEDS: HEPARIN 5,000 UNIT/ML VIAL SQ SCH ×2 (10:14→21:29)
[2020-06-09] MEDS: TAMSULOSIN 0.4 MG CAPSULE PO SCH (10:14)
[2020-06-09] MEDS: DOCUSATE SODIUM 100 MG CAPSULE PO SCH ×2 (10:15→21:29)
[2020-06-09] MEDS: MULTIVIT,THER IRON,CA,FA & MIN 1 TABLET PO SCH (10:15)
--- NOTE | 2020-06-09 10:40 | Internal Med Progress Note ---
SUBJECTIVE Subjective Patient information: Note initiated : 06/09/20 at 10:36 am Service Date, if different from initiated Date: [] Patient: Kristi Kennedy a 84 y/o M admitted on 06/07/20 for Weakness Since 1030. Chief Complaint: History of present illness: Mr. Kennedy is a 84 year old M with a history of dementia/hypertension who lives with his Shelbie in a trailer. He was in his baseline state of health until this morning while coming out of the trailer patient started experiencing shaking chills. patient is normally incontinent and uses depends. Shelbie later found blood in his diapers. Over the next few hours patient became increasingly weak confused and lethargic. Patient was brought in for further evaluation. Initial work-up in the ER was consistent with complicated UTI, fever 104, white count 17,000 consistent with sepsis with endorgan dysfunction. Cultures were drawn and antibiotics initiated. Patient was started on crystalloids and subsequently hospitalist service was consulted At the time of my evaluation patient is accompanied with his Shelbie. She is able to answer most the question. Patient has underlying dementia and unable to provide a detailed history. However he was able to provide answers review of systems and denies diarrhea, headache, photophobia endorses to myalgia, shaking chills and fever. 06/08-patient clinically improving. White count down to 13.5. Gram-negative martín on blood cultures. Likely source urinary infection. Renal ultrasound no evidence of obstructive uropathy. Stable hemodynamics. T-max 104.2. Map at goal. Continue antibiotic coverage and de-escalate based on sensitivities. 06/09-patient doing a lot better. Ongoing physical therapy. White count downtrending. GNR on cultures. Sensitivities pending. No overnight fever chills, T-max 100.4. Anticipate discharge to SNF in 48 hours pending clinical improvement. Constitutional Vitals: Vital Signs Temp Pulse Resp BP Pulse Ox 99.6 F H 60 16 169/81 95 06/09/20 03:50 06/09/20 03:50 06/09/20 03:50 06/09/20 03:50 06/09/20 03:50 Period Temp Pulse Resp BP Sys/Calvin Pulse Ox Last 24 Hr 98.6 F-100.4 F 60-89 16-18 124-169/67-81 92-97 Intake and Output 06/08/20 06/09/20 06/09/20 21:59 05:59 13:59 Intake Total 1290 300 Output Total 1 203 Balance 1289 97 Weight 63.231 kg Respond to commands Ambulating with assistance Nonlabored breathing No anxiety Intake & Output: Intake & Output 06/08/20 06/09/20 06/09/20 21:59 05:59 13:59 Intake Total 1290 300 Output Total 1 203 Balance 1289 97 Weight 63.231 kg Intake: IV 1050 Sodium Chloride 0.9% 1,000 ml @ 1000 50 mls/hr IV .Q20H [facility] Rx#: [id number] Rocephin 2 gm In Dextrose 5% in 50 Water 50 ml @ 100 mls/hr IV DAILY [facility] Rx#:[id number] Oral 240 300 Output: Urine Catheter Amount 200 # of times incontinent of urine 1 3 Other: Meal Dinner Percent of Meal Consumed 50% Feeding Ability Total Assistance Urine Appearance Clear Urine Color Pale Urine Odor Normal Stool Size Moderate Stool Color Brown Stool Consistency Formed # of times incontinent of 1 Bowels OBJ DATA Labs CBC & Chem 7: 06/08/20 05:32 06/08/20 05:32 Labs: Abnormal Lab Results 06/08/20 06/08/20 06/07/20 05:32 05:32 16:23 WBC 13.5 H RBC 4.15 L Hgb 12.9 L Hct 38.3 L MPV 10.5 H Neut % (Auto) Lymph % (Auto) Lymph # (Auto) [place] # (Auto) Seg Neutrophils % 82 H Lymphocytes % 10 L Absolute Neutrophils Glucose Phosphorus 2.2 L GGT 6 L Urine Appearance Hazy A Urine Protein 100 A Urine Occult Blood >=1.0 A Ur Leukocyte Esterase 75 A Urine RBC > 182 H Urine WBC 111 H Amorphous Crystals Few A Urine Mucus Mod A 06/07/20 06/07/20 15:22 15:22 WBC 17.0 H RBC Hgb Hct MPV Neut % (Auto) 85.0 H Lymph % (Auto) 6.2 L Lymph # (Auto) 1.05 L [place] # (Auto) 1.28 H Seg Neutrophils % Lymphocytes % Absolute Neutrophils 14.42 H Glucose 107 H Phosphorus GGT Urine Appearance Urine Protein Urine Occult Blood Ur Leukocyte Esterase Urine RBC Urine WBC Amorphous Crystals Urine Mucus Meds: Medications Acetaminophen (Tylenol) 650 mg PO Q4-6HP PRN; Protocol PRN Reason: Per Pain Protocol/Fever > 101 Last Admin: 06/08/20 17:15 Dose: 650 mg Documented by: Bisacodyl (Dulcolax) 10 mg [place] Q2-3DAYS PRN PRN Reason: Constipation Docusate Sodium (Colace) 100 mg PO BID [facility] Last Admin: 06/09/20 10:15 Dose: Not Given Documented by: Donepezil HCl (Aricept) 10 mg PO QDAY [facility] Last Admin: 06/09/20 10:14 Dose: 10 mg Documented by: Heparin Sodium (Porcine) (Heparin) 5,000 unit SQ Q12 [facility] Last Admin: 06/09/20 10:14 Dose: 5,000 unit Documented by: Potassium Chloride 40 meq/ (Dextrose) 520 mls @ 130 mls/hr IV UD PRN PRN Reason: K+ = or < 3.5 Acetaminophen (Ofirmev) 650 mg in 65 mls @ 130 mls/hr IV Q6HP PRN; Protocol PRN Reason: Per Pain Protocol/Fever > 101 Magnesium Sulfate (Magnesium Sulfate) 2 gm in 50 mls @ 50 mls/hr IV UD PRN PRN Reason: MG = or < 1.7 Sodium Chloride (Sodium Chloride 0.9%) 1,000 mls @ 50 mls/hr IV .Q20H [facility] Stop: 06/10/20 09:10 Last Admin: 06/08/20 20:06 Dose: 50 mls/hr Documented by: Ceftriaxone Sodium 2 gm/ (Dextrose) 50 mls @ 100 mls/hr IV DAILY [facility]; Protocol Last Infusion: 06/08/20 14:20 Dose: Infused Documented by: Levofloxacin (Levaquin) 750 mg in 150 mls @ 100 mls/hr IV Q48H [facility]; Protocol Iron Carb/Multivit/[employer]/Folic Acid (Multivitamin W/Minerals) 1 tab PO DAILY [facility] Last Admin: 06/09/20 10:15 Dose: 1 tab Documented by: Levothyroxine Sodium (Synthroid) 75 mcg PO ACB [facility] Last Admin: 06/09/20 07:33 Dose: 75 mcg Documented by: Lisinopril (Zestril) 10 mg PO QDAY [facility] Last Admin: 06/09/20 10:14 Dose: 10 mg Documented by: Melatonin (Melatonin 3mg Tablet) 3 mg PO HSP PRN PRN Reason: Insomnia Memantine (Namenda) 10 mg PO BID [facility] Last Admin: 06/09/20 10:14 Dose: 10 mg Documented by: Ondansetron HCl (Zofran Odt) 4 mg SL Q4-6HP PRN; Protocol PRN Reason: Nausea And Vomiting Ondansetron HCl (Zofran) 4 mg IV Q4-6HP PRN; Protocol PRN Reason: Nausea And Vomiting Polyethylene Glycol (Miralax) 17 gm PO DAILYP PRN PRN Reason: Constipation Potassium Chloride (Klor-Con) 40 meq PO DAILYP PRN PRN Reason: K+ < 3.5 Senna/Docusate Sodium (Senna Plus Tablet) 1 tab PO HS [facility] Last Admin: 06/08/20 21:05 Dose: 1 tab Documented by: Sodium Chloride (Saline Flush) 10 ml IV Q8 [facility] Last Admin: 06/09/20 05:28 Dose: Not Given Documented by: Tamsulosin HCl (Flomax) 0.4 mg PO QDAY [facility] Last Admin: 06/09/20 10:14 Dose: 0.4 mg Documented by: A/P Narrative A/P Narrative: * Severe sepsis with endorgan dysfunction. Clinically improved. White count downtrending * Gram-negative bacteremia-on antibiotic coverage. Await sensitivities for de- escalation * Complicated E. coli UTI continue antibiotic coverage. Renal ultrasound negative for obstructive uropathy. * Hematuria-resolved. Renal ultrasound no evidence of mass lesion or obstructive uropathy * Dementia continue donepezil/memantine * BPH on tamsulosin * Hypothyroid continue thyroxine * History of hypertension continue lisinopril * History of shingles. No acute flare * Full code * Prophylax Heparin Plan * Antibiotic de-escalation based on sensitivities * Continue delirium and fall watch * PT OT nutrition support * Discharge planning likely SNF in 48 hours * Pre-existing medical condition management to continue home medications Time Spent With Patient Time: Total time spent is greater than 50% in coordination of care (as documented) at patient's floor/unit and/or counseling patient: QUALITY VTE Deep Vein Thrombosis/Pulmonary Embolism Present on Admission: No
[2020-06-09] MEDS: cefTRIAXone 2 GM in DEXTROSE 5% IN WATER 50 ML IV SCH (10:55)
[2020-06-09] MEDS: LEVOFLOXACIN 750 MG/150 ML BAG IV SCH (11:39)
--- NOTE | 2020-06-09 13:00 | XRay Report ---
CLINICAL INFORMATION: Follow-up infiltrates COMPARISON: 2019. TECHNIQUE: PA and Lateral views FINDINGS: The heart size, mediastinum and pulmonary vessels are unremarkable. The lungs are clear - mild airspace disease in the lung bases has resolved since exam two days ago. There are no effusions. The bones and soft tissues are within normal limits. IMPRESSION: Normal chest. Interpreted and Authenticated by: Elie Torrez 06/09/20
[2020-06-09] MEDS: 0.9 % SODIUM CHLORIDE 1,000 ML IV SCH ×2 (18:15→21:29)
[2020-06-09 21:10] LABS: ALT/SGPT 6 U/L (<40); AST/SGOT 13 U/L (<40); Albumin 3.3 gm/dL (3.2-5.2); Albumin/Globulin Ratio 1.1 (1.0-2.3); Alkaline Phosphatase 60 U/L (39-117); Bilirubin,Direct < 0.2 mg/dL (<0.3); Bilirubin,Total 0.2 mg/dL (0.1-1.0); Blood Urea Nitrogen 16 mg/dL (8-23); Calcium 8.8 mg/dL (8.6-10.4); Carbon Dioxide 25 mmol/L (22-30); Chloride 104 mmol/L (96-108); Globulin 2.9 gm/dL (2.2-3.7); Glomerular Filtration Rate 69; Glucose 105 mg/dL (70-105); Lactate Dehydrogenase 155 U/L (135-225); Phosphorous 2.3 mg/dL (2.5-4.5); Triglycerides 66 mg/dL (<150); Uric Acid 3.6 mg/dL (2.5-8.0)
[2020-06-09 21:27] LABS: Basophils % (Manual) 1 % (0-2); Eosinophils % (Manual) 1 % (0-7); Hematocrit 36.7 % (41.0-55.0); Hemoglobin 12.4 g/dL (13.5-16.5); Lymphocytes % 10 % (15-49); Mean Cell Volume 91.8 fL (80.0-100.0); Mean Corpuscular HGB Conc 33.8 g/dL (31.0-36.0); Mean Platelet Volume 10.2 fL (7.4-10.4); Monocytes % (Manual) 5 % (1-12); Platelet Count 195 K/mcL (140-440); Platelet Estimate NORMAL (Normal); RBC Morphology NORMAL (Normal); Red Cell Distribution Width 13.2 % (11.5-14.5); Segmented Neutrophils % 83 % (38-78); WBC 11.1 K/mcL (4.5-11.0)
[2020-06-09] MEDS: SENNOSIDES/DOCUSATE SODIUM 1 TAB TABLET PO SCH (21:29)
[2020-06-10] MEDS: 0.9 % SODIUM CHLORIDE 10 ML SYRINGE IV SCH ×3 (05:46→20:13)
[2020-06-10 08:26] LABS: Eosinophils % (Manual) 3 % (0-7); Hematocrit 36.8 % (41.0-55.0); Hemoglobin 12.2 g/dL (13.5-16.5); Lymphocytes % 8 % (15-49); Mean Cell Volume 92.7 fL (80.0-100.0); Mean Corpuscular HGB Conc 33.2 g/dL (31.0-36.0); Mean Platelet Volume 10.3 fL (7.4-10.4); Monocytes % (Manual) 9 % (1-12); Platelet Count 194 K/mcL (140-440); Platelet Estimate NORMAL (Normal); RBC 3.97 M/mcL (4.50-5.90); RBC Morphology NORMAL (Normal); Reactive Lymphocytes 1 % (0-2); Red Cell Distribution Width 13.2 % (11.5-14.5); Segmented Neutrophils % 79 % (38-78); WBC 9.5 K/mcL (4.5-11.0)
[2020-06-10] MEDS: cefTRIAXone 2 GM in DEXTROSE 5% IN WATER 50 ML IV SCH (10:33)
[2020-06-10] MEDS: HEPARIN 5,000 UNIT/ML VIAL SQ SCH ×2 (10:37→20:13)
[2020-06-10] MEDS: DONEPEZIL 10 MG TABLET PO SCH (10:41)
[2020-06-10] MEDS: LEVOTHYROXINE 75 MCG TABLET PO SCH (10:41)
[2020-06-10] MEDS: TAMSULOSIN 0.4 MG CAPSULE PO SCH (10:42)
[2020-06-10] MEDS: MEMANTINE 10 MG TABLET PO SCH ×2 (10:45→20:14)
[2020-06-10] MEDS: LISINOPRIL 10 MG TABLET PO SCH (10:46)
[2020-06-10] MEDS: DOCUSATE SODIUM 100 MG CAPSULE PO SCH ×2 (10:48→20:14)
[2020-06-10] MEDS: MULTIVIT,THER IRON,CA,FA & MIN 1 TABLET PO SCH (10:49)
--- NOTE | 2020-06-10 10:58 | Internal Med Progress Note ---
SUBJECTIVE Subjective Patient information: Note initiated : 06/10/20 at 10:55 am Service Date, if different from initiated Date: [] Patient: Kristi Kennedy a 84 y/o M admitted on 06/07/20 for Weakness Since 1030. Chief Complaint: History of present illness: Mr. Kennedy is a 84 year old M with a history of dementia/hypertension who lives with his Shelbie in a trailer. He was in his baseline state of health until this morning while coming out of the trailer patient started experiencing shaking chills. patient is normally incontinent and uses depends. Shelbie later found blood in his diapers. Over the next few hours patient became increasingly weak confused and lethargic. Patient was brought in for further evaluation. Initial work-up in the ER was consistent with complicated UTI, fever 104, white count 17,000 consistent with sepsis with endorgan dysfunction. Cultures were drawn and antibiotics initiated. Patient was started on crystalloids and subsequently hospitalist service was consulted At the time of my evaluation patient is accompanied with his Shelbie. She is able to answer most the question. Patient has underlying dementia and unable to provide a detailed history. However he was able to provide answers review of systems and denies diarrhea, headache, photophobia endorses to myalgia, shaking chills and fever. 06/08-patient clinically improving. White count down to 13.5. Gram-negative martín on blood cultures. Likely source urinary infection. Renal ultrasound no evidence of obstructive uropathy. Stable hemodynamics. T-max 104.2. Map at goal. Continue antibiotic coverage and de-escalate based on sensitivities. 06/09-patient doing a lot better. Ongoing physical therapy. White count downtrending. GNR on cultures. Sensitivities pending. No overnight fever chills, T-max 100.4. Anticipate discharge to SNF in 48 hours pending clinical improvement. 06/10-patient doing well. Clinical improvement on antibiotic coverage. Target additional 5 days antibiotic. Possible discharge to SNF in 24 hours. at bedside. No overnight events or concerns per staff. Constitutional Vitals: vital Signs Temp Pulse Resp BP Pulse Ox 98.6 F 93 H 20 138/74 93 06/10/20 08:00 06/10/20 08:00 06/10/20 08:00 06/10/20 08:00 06/10/20 08:00 Period Temp Pulse Resp BP Sys/Calvin Pulse Ox Last 24 Hr 97.7 F-98.8 F 63-93 16-20 124-180/68-81 92-95 Intake and Output 06/09/20 06/10/20 06/10/20 21:59 05:59 13:59 Intake Total 1640 200 240 Output Total 679 2 Balance 961 198 240 Weight 61.235 kg Alert oriented Nonlabored breathing No anxiety Nondistended abdomen Intake & Output: Intake & Output 06/09/20 06/10/20 06/10/20 21:59 05:59 13:59 Intake Total 1640 200 240 Output Total 679 2 Balance 961 198 240 Weight 61.235 kg Intake: IV 1000 Sodium Chloride 0.9% 1,000 ml @ 1000 50 mls/hr IV .Q20H [facility] Rx#: [id number] Oral 640 200 240 Output: Urine Catheter Amount 75 Void Amount 600 # of times incontinent of urine 4 2 Other: Meal Dinner Breakfast Percent of Meal Consumed 75% 25% Feeding Ability Total Assistance Total Assistance Urine Appearance Clear Clear Urine Color Pale Bright Yellow Urine Odor Normal Normal Stool Size Moderate # of times incontinent of 1 Bowels OBJ DATA Labs CBC & Chem 7: 06/09/20 20:10 06/09/20 06:21 Labs: Abnormal Lab Results 06/09/20 06/09/20 06/09/20 20:10 06:21 06:21 WBC 11.1 H RBC 3.97 L 4.00 L Hgb 12.2 L 12.4 L Hct 36.8 L 36.7 L MPV Neut % (Auto) Lymph % (Auto) Lymph # (Auto) [place] # (Auto) Seg Neutrophils % 79 H 83 H Lymphocytes % 8 L 10 L Absolute Neutrophils Glucose Phosphorus 2.3 L GGT 7 L Urine Appearance Urine Protein Urine Occult Blood Ur Leukocyte Esterase Urine RBC Urine WBC Amorphous Crystals Urine Mucus 06/08/20 06/08/20 06/07/20 05:32 05:32 16:23 WBC 13.5 H RBC 4.15 L Hgb 12.9 L Hct 38.3 L MPV 10.5 H Neut % (Auto) Lymph % (Auto) Lymph # (Auto) [place] # (Auto) Seg Neutrophils % 82 H Lymphocytes % 10 L Absolute Neutrophils Glucose Phosphorus 2.2 L GGT 6 L Urine Appearance Hazy A Urine Protein 100 A Urine Occult Blood >=1.0 A Ur Leukocyte Esterase 75 A Urine RBC > 182 H Urine WBC 111 H Amorphous Crystals Few A Urine Mucus Mod A 06/07/20 06/07/20 15:22 15:22 WBC 17.0 H RBC Hgb Hct MPV Neut % (Auto) 85.0 H Lymph % (Auto) 6.2 L Lymph # (Auto) 1.05 L [place] # (Auto) 1.28 H Seg Neutrophils % Lymphocytes % Absolute Neutrophils 14.42 H Glucose 107 H Phosphorus GGT Urine Appearance Urine Protein Urine Occult Blood Ur Leukocyte Esterase Urine RBC Urine WBC Amorphous Crystals Urine Mucus Meds: Medications Acetaminophen (Tylenol) 650 mg PO Q4-6HP PRN; Protocol PRN Reason: Per Pain Protocol/Fever > 101 Last Admin: 06/08/20 17:15 Dose: 650 mg Documented by: Bisacodyl (Dulcolax) 10 mg [place] Q2-3DAYS PRN PRN Reason: Constipation Docusate Sodium (Colace) 100 mg PO BID [facility] Last Admin: 06/10/20 10:48 Dose: 100 mg Documented by: Donepezil HCl (Aricept) 10 mg PO QDAY [facility] Last Admin: 06/10/20 10:41 Dose: 10 mg Documented by: Heparin Sodium (Porcine) (Heparin) 5,000 unit SQ Q12 [facility] Last Admin: 06/10/20 10:37 Dose: 5,000 unit Documented by: Potassium Chloride 40 meq/ (Dextrose) 520 mls @ 130 mls/hr IV UD PRN PRN Reason: K+ = or < 3.5 Acetaminophen (Ofirmev) 650 mg in 65 mls @ 130 mls/hr IV Q6HP PRN; Protocol PRN Reason: Per Pain Protocol/Fever > 101 Magnesium Sulfate (Magnesium Sulfate) 2 gm in 50 mls @ 50 mls/hr IV UD PRN PRN Reason: MG = or < 1.7 Ceftriaxone Sodium 2 gm/ (Dextrose) 50 mls @ 100 mls/hr IV DAILY [facility]; Protocol Last Admin: 06/10/20 10:33 Dose: 100 mls/hr Documented by: Levofloxacin (Levaquin) 750 mg in 150 mls @ 100 mls/hr IV Q48H [facility]; Protocol Last Infusion: 06/09/20 13:09 Dose: Infused Documented by: Iron Carb/Multivit/[place]/Folic Acid (Multivitamin W/Minerals) 1 tab PO DAILY [facility] Last Admin: 06/10/20 10:49 Dose: 1 tab Documented by: Levothyroxine Sodium (Synthroid) 75 mcg PO ACB [facility] Last Admin: 06/10/20 10:41 Dose: 75 mcg Documented by: Lisinopril (Zestril) 10 mg PO QDAY [facility] Last Admin: 06/10/20 10:46 Dose: 10 mg Documented by: Melatonin (Melatonin 3mg Tablet) 3 mg PO HSP PRN PRN Reason: Insomnia Memantine (Namenda) 10 mg PO BID [facility] Last Admin: 06/10/20 10:45 Dose: 10 mg Documented by: Ondansetron HCl (Zofran Odt) 4 mg SL Q4-6HP PRN; Protocol PRN Reason: Nausea And Vomiting Ondansetron HCl (Zofran) 4 mg IV Q4-6HP PRN; Protocol PRN Reason: Nausea And Vomiting Polyethylene Glycol (Miralax) 17 gm PO DAILYP PRN PRN Reason: Constipation Potassium Chloride (Klor-Con) 40 meq PO DAILYP PRN PRN Reason: K+ < 3.5 Senna/Docusate Sodium (Senna Plus Tablet) 1 tab PO HS [facility] Last Admin: 06/09/20 21:29 Dose: Not Given Documented by: Sodium Chloride (Saline Flush) 10 ml IV Q8 [facility] Last Admin: 06/10/20 05:46 Dose: Not Given Documented by: Tamsulosin HCl (Flomax) 0.4 mg PO QDAY [facility] Last Admin: 06/10/20 10:42 Dose: 0.4 mg Documented by: A/P Narrative A/P Narrative: * Severe sepsis with endorgan dysfunction. Clinical improvement noted. * Gram-negative bacteremia-continuing antibiotic coverage. Day 48 * Complicated E. coli UTI continue antibiotic coverage. Renal ultrasound negative for obstructive uropathy. * Hematuria-resolved. Renal ultrasound no evidence of mass lesion or obstructive uropathy * Dementia continue donepezil/memantine * BPH on tamsulosin * Hypothyroid continue thyroxine * History of hypertension continue lisinopril * History of shingles. No acute flare * Full code * Prophylax Heparin Plan * Antibiotic day 4 * Continue delirium and fall watch * PT OT nutrition support * Discharge planning likely SNF in 24 hours * Pre-existing medical condition management to continue home medications Time Spent With Patient Time: Total time spent is greater than 50% in coordination of care (as documented) at patient's floor/unit and/or counseling patient: QUALITY VTE Deep Vein Thrombosis/Pulmonary Embolism Present on Admission: No
[2020-06-10 13:18] LABS: ALT/SGPT 7 U/L (<40); AST/SGOT 16 U/L (<40); Albumin 3.2 gm/dL (3.2-5.2); Albumin/Globulin Ratio 1.2 (1.0-2.3); Alkaline Phosphatase 60 U/L (39-117); Bilirubin,Direct < 0.2 mg/dL (<0.3); Bilirubin,Total 0.3 mg/dL (0.1-1.0); Blood Urea Nitrogen 12 mg/dL (8-23); Calcium 8.7 mg/dL (8.6-10.4); Carbon Dioxide 22 mmol/L (22-30); Chloride 103 mmol/L (96-108); Globulin 2.7 gm/dL (2.2-3.7); Glomerular Filtration Rate 78; Glucose 92 mg/dL (70-105); Lactate Dehydrogenase 228 U/L (135-225); Phosphorous 2.4 mg/dL (2.5-4.5); Triglycerides 107 mg/dL (<150); Uric Acid 3.5 mg/dL (2.5-8.0)
[2020-06-10 14:55] LABS: ALT/SGPT 9 U/L (<40); AST/SGOT 17 U/L (<40); Albumin 3.6 gm/dL (3.2-5.2); Albumin/Globulin Ratio 1.1 (1.0-2.3); Alkaline Phosphatase 66 U/L (39-117); Bilirubin,Direct < 0.2 mg/dL (<0.3); Bilirubin,Total 0.2 mg/dL (0.1-1.0); Blood Urea Nitrogen 17 mg/dL (8-23); Carbon Dioxide 24 mmol/L (22-30); Chloride 101 mmol/L (96-108); Globulin 3.3 gm/dL (2.2-3.7); Glomerular Filtration Rate 69; Glucose 148 mg/dL (70-105); Lactate Dehydrogenase 176 U/L (135-225); Phosphorous 2.6 mg/dL (2.5-4.5); Triglycerides 135 mg/dL (<150); Uric Acid 3.5 mg/dL (2.5-8.0)
[2020-06-10 15:04] LABS: Basophils % (Manual) 2 % (0-2); Hematocrit 40.1 % (41.0-55.0); Hemoglobin 13.4 g/dL (13.5-16.5); Lymphocytes % 12 % (15-49); Mean Corpuscular HGB Conc 33.4 g/dL (31.0-36.0); Mean Platelet Volume 10.7 fL (7.4-10.4); Monocytes % (Manual) 5 % (1-12); Platelet Count 238 K/mcL (140-440); Platelet Estimate NORMAL (Normal); RBC 4.31 M/mcL (4.50-5.90); RBC Morphology NORMAL (Normal); Reactive Lymphocytes 3 % (0-2); Red Cell Distribution Width 13.3 % (11.5-14.5); Segmented Neutrophils % 78 % (38-78); WBC 8.9 K/mcL (4.5-11.0)
[2020-06-10] MEDS: MELATONIN 3 MG TABLET PO PRN (20:14)
[2020-06-10] MEDS: SENNOSIDES/DOCUSATE SODIUM 1 TAB TABLET PO SCH (20:14)
[2020-06-11] MEDS: 0.9 % SODIUM CHLORIDE 10 ML SYRINGE IV SCH ×3 (06:00→21:20)
[2020-06-11 08:17] LABS: Eosinophils % (Manual) 2 % (0-7); Hematocrit 34.5 % (41.0-55.0); Hemoglobin 11.7 g/dL (13.5-16.5); Lymphocytes % 16 % (15-49); Mean Corpuscular HGB Conc 33.9 g/dL (31.0-36.0); Mean Platelet Volume 10.4 fL (7.4-10.4); Monocytes % (Manual) 14 % (1-12); Platelet Count 213 K/mcL (140-440); Platelet Estimate NORMAL (Normal); RBC 3.79 M/mcL (4.50-5.90); RBC Morphology NORMAL (Normal); Red Cell Distribution Width 13.1 % (11.5-14.5); Segmented Neutrophils % 68 % (38-78); WBC 8.2 K/mcL (4.5-11.0)
[2020-06-11] MEDS: LEVOFLOXACIN 750 MG/150 ML BAG IV SCH (08:24)
[2020-06-11] MEDS: LISINOPRIL 10 MG TABLET PO SCH (08:25)
[2020-06-11] MEDS: MULTIVIT,THER IRON,CA,FA & MIN 1 TABLET PO SCH (08:25)
[2020-06-11] MEDS: TAMSULOSIN 0.4 MG CAPSULE PO SCH (08:25)
[2020-06-11] MEDS: HEPARIN 5,000 UNIT/ML VIAL SQ SCH ×2 (08:25→21:02)
[2020-06-11] MEDS: DOCUSATE SODIUM 100 MG CAPSULE PO SCH ×2 (08:25→21:03)
[2020-06-11] MEDS: MEMANTINE 10 MG TABLET PO SCH ×2 (08:25→21:03)
[2020-06-11] MEDS: DONEPEZIL 10 MG TABLET PO SCH (08:25)
[2020-06-11] MEDS: LEVOTHYROXINE 75 MCG TABLET PO SCH (08:26)
--- NOTE | 2020-06-11 09:10 | Discharge Summary ---
Discharge Provider Provider Patient information: Note initiated : 06/12/20 at 9:07 am Service Date, if different from initiated Date: [] Patient: Kristi Kennedy a 84 y/o M admitted on 06/07/20 for Weakness Since 1030. Chief Complaint: Discharge diagnosis * Severe sepsis with endorgan dysfunction. Make resolved * E. coli bacteremia-continue oral Levaquin for additional 4 days * Complicated E. coli UTI , clinically improved. Renal ultrasound negative for obstructive uropathy. * Hematuria-resolved. Renal ultrasound no evidence of mass lesion or obstructive uropathy * Dementia continue donepezil/memantine * BPH on tamsulosin * Hypothyroid continue thyroxine * History of hypertension continue lisinopril * History of shingles. No acute flare Brief hospital course History of present illness: Mr. Kennedy is a 84 year old M with a history of [place] ntia/hypertension who lives with his Shelbie in a trailer. He was in his baseline state of health until this morning while coming out of the trailer patient started experiencing shaking chills. patient is normally incontinent and uses depends. Shelbie later found blood in his diapers. Over the next few hours patient became increasingly weak confused and lethargic. Patient was brought in for further evaluation. Initial work-up in the ER was consistent with complicated UTI, fever 104, white count 17,000 consistent with sepsis with endorgan dysfunction. Cultures were drawn and antibiotics initiated. Patient was started on crystalloids and subsequently hospitalist service was consulted At the time of my evaluation patient is accompanied with his Shelbie. She is able to answer most the question. Patient has underlying dementia and unable to provide a detailed history. However he was able to provide answers review of systems and denies diarrhea, headache, photophobia endorses to myalgia, shaking chills and fever. 06/08-patient clinically improving. White count down to 13.5. Gram-negative martín on blood cultures. Likely source urinary infection. Renal ultrasound no evidence of obstructive uropathy. Stable hemodynamics. T-max 104.2. Map at goal. Continue antibiotic coverage and de-escalate based on sensitivities. 06/09-patient doing a lot better. Ongoing physical therapy. White count downtrending. GNR on cultures. Sensitivities pending. No overnight fever chills, T-max 100.4. Anticipate discharge to SNF in 48 hours pending clinical improvement. 06/10-patient doing well. Clinical improvement on antibiotic coverage. Target additional 5 days antibiotic. Possible discharge to SNF in 24 hours. at bedside. No overnight events or concerns per staff. 06/11-patient doing a lot better. Afebrile. Denies abdominal pain. Mentation at baseline. Anticipate discharge to SNF in 24 hours. Case management aggressively coordinating transfer. No additional concerns per nursing staff 06/12 -patient discharging to SNF [facility]. Continue oral Levaquin for additional 4 days. Continue dementia care/fall watch. PT OT/nutrition support Date of admission: 06/07/20 20:23 Discharge date: 06/12/20 Primary care physician: Nathan Mcdonough MD Consults: 06/07/20 Consult to Physician [CONS] Stat Comment: Consulting Provider: Adilson East Reason For Exam: Physician to Consult Discharge Meds Discharge Medications Home Medications donepezil 5 mg tablet 10 mg PO QDAY tab 07/26/19 [History Confirmed 06/07/20 Last Taken 06/07/20 09:30] multivitamin 1 tab PO QDAY 07/26/19 [History Confirmed 06/07/20 Last Taken Unknown] tamsulosin 0.4 mg capsule 0.4 mg PO QDAY #90 cap 12/20/19 [Rx Confirmed 06/07/20 Last Taken 06/07/20 09:30] lisinopril 10 mg tablet 10 mg PO QDAY #90 tab 02/15/20 [Rx Confirmed 06/07/20 Last Taken 06/07/20 06:30] memantine 10 mg tablet 10 mg PO BID #180 tab 05/15/20 [Rx Confirmed 06/07/20 Last Taken 06/07/20 09:30] levothyroxine 75 mcg tablet 75 mcg PO QDAY #90 tab 05/30/20 [Rx Confirmed 06/07/20 Last Taken 06/07/20 06:30] levofloxacin 750 mg PO DAILY #5 tab 06/11/20 [Rx Last Taken Unknown] COURSE Hospital Course Hospital course: . Discharge diagnosis: . Time Spent with Patient Time attestation: Total time spent providing and/or coordinating discharge services: EXAM Constitutional Vitals: Temp Pulse Resp BP Pulse Ox 98.5 F 52 L 22 127/62 95 06/11/20 08:00 06/11/20 08:00 06/11/20 08:00 06/11/20 08:00 06/11/20 08:00 Discharge Data Data Completed and Pending Labs on day of discharge: Labs from last 24 hours 06/11/20 06/11/20 06/10/20 05:31 05:31 13:52 WBC 8.2 RBC 3.79 L Hgb 11.7 L Hct 34.5 L MCV 91.0 MCH 30.9 MCHC 33.9 RDW 13.1 Plt Count 213 MPV 10.4 Seg Neutrophils % 68 Band Neutrophils % Pending Lymphocytes % 16 Monocytes % (Manual) 14 H Eosinophils % (Manual) 2 Basophils % (Manual) Reactive Lymphocytes Platelet Estimate Normal RBC Morphology Normal Sodium Pending 136 Potassium Pending 3.9 Chloride Pending 101 Carbon Dioxide Pending 24 Anion Gap Pending 11.0 BUN Pending 17 Creatinine Pending 1.0 GFR Calculation Pending 69 Glucose Pending 148 H Uric Acid Pending 3.5 Calcium Pending 9.0 Phosphorus Pending 2.6 Magnesium Pending 2.3 Total Bilirubin Pending 0.2 Direct Bilirubin Pending < 0.2 GGT Pending 8 AST Pending 17 ALT Pending 9 Alkaline Phosphatase Pending 66 Lactate Dehydrogenase Pending 176 Total Protein Pending 6.9 Albumin Pending 3.6 Globulin Pending 3.3 Albumin/Globulin Ratio Pending 1.1 Triglycerides Pending 135 06/10/20 06/10/20 06/10/20 13:52 05:30 05:30 WBC 8.9 TNP RBC 4.31 L TNP Hgb 13.4 L TNP Hct 40.1 L TNP MCV 93.0 TNP MCH 31.1 TNP MCHC 33.4 TNP RDW 13.3 TNP Plt Count 238 TNP MPV 10.7 H TNP Seg Neutrophils % 78 TNP Band Neutrophils % Pending TNP Lymphocytes % 12 L TNP Monocytes % (Manual) 5 Eosinophils % (Manual) Basophils % (Manual) 2 Reactive Lymphocytes 3 H Platelet Estimate Normal TNP RBC Morphology Normal TNP Sodium TNP Potassium TNP Chloride TNP Carbon Dioxide TNP Anion Gap TNP BUN TNP Creatinine TNP GFR Calculation TNP Glucose TNP Uric Acid TNP Calcium TNP Phosphorus TNP Magnesium TNP Total Bilirubin TNP Direct Bilirubin TNP GGT TNP AST TNP ALT TNP Alkaline Phosphatase TNP Lactate Dehydrogenase TNP Total Protein TNP Albumin TNP Globulin TNP Albumin/Globulin Ratio TNP Triglycerides TNP 06/09/20 20:10 WBC RBC Hgb Hct MCV MCH MCHC RDW Plt Count MPV Seg Neutrophils % Band Neutrophils % Lymphocytes % Monocytes % (Manual) Eosinophils % (Manual) Basophils % (Manual) Reactive Lymphocytes Platelet Estimate RBC Morphology Sodium 136 Potassium 3.9 Chloride 103 Carbon Dioxide 22 Anion Gap 11.0 BUN 12 Creatinine 0.9 GFR Calculation 78 Glucose 92 Uric Acid 3.5 Calcium 8.7 Phosphorus 2.4 L Magnesium 2.1 Total Bilirubin 0.3 Direct Bilirubin < 0.2 GGT 8 AST 16 ALT 7 Alkaline Phosphatase 60 Lactate Dehydrogenase 228 H Total Protein 5.9 Albumin 3.2 Globulin 2.7 Albumin/Globulin Ratio 1.2 Triglycerides 107 Preliminary micro results at discharge 06/07/20 15:21 Blood Culture - Preliminary Blood Escherichia coli 06/07/20 15:15 Blood Culture - Preliminary Blood Discharge Plan Patient/Caregiver Discharge Instructions Activity: increase activity as tolerated Diet: Regular Diet Activity Restrictions/Additional Instructions: Continue Levaquin for additional 4 days Dementia care PT OT nutrition support Fall watch Prescriptions: New levofloxacin [levofloxacin] 750 MG tablet 750 mg PO DAILY Qty: 5 RF: 0 Continued tamsulosin [Flomax] 0.4 mg capsule 0.4 mg PO QDAY Qty: 90 RF: 1 lisinopril [Prinivil] 10 mg tablet 10 mg PO QDAY Qty: 90 RF: 1 memantine [Namenda] 10 mg tablet 10 mg PO BID Qty: 180 RF: 1 levothyroxine [Synthroid] 75 mcg tablet 75 mcg PO QDAY Qty: 90 RF: 1 donepezil 5 mg tablet 10 mg PO QDAY RF: 0 multivitamin tablet 1 tab PO QDAY RF: 0 Follow Up Plan Follow up with: Nathan Mcdonough MD [Primary Care Provider] - Patient Disposition: Xfer SNF Rehab Potential: Fair I certify that the patient requires SNF services: Yes Overall status at discharge: patient is progressing back to baseline Discharge Orders: Discharge Order (Routine); Ordered 06/12/20 Ordered By: Adilson OSUNA VTE Deep Vein Thrombosis/Pulmonary Embolism Present on Admission: No
[2020-06-11 09:24] LABS: ALT/SGPT 9 U/L (<40); AST/SGOT 18 U/L (<40); Albumin 3.1 gm/dL (3.2-5.2); Albumin/Globulin Ratio 1.1 (1.0-2.3); Alkaline Phosphatase 55 U/L (39-117); Bilirubin,Direct < 0.2 mg/dL (<0.3); Bilirubin,Total 0.3 mg/dL (0.1-1.0); Blood Urea Nitrogen 16 mg/dL (8-23); Calcium 8.2 mg/dL (8.6-10.4); Carbon Dioxide 24 mmol/L (22-30); Chloride 102 mmol/L (96-108); Globulin 2.7 gm/dL (2.2-3.7); Glomerular Filtration Rate 82; Glucose 90 mg/dL (70-105); Lactate Dehydrogenase 181 U/L (135-225); Phosphorous 2.6 mg/dL (2.5-4.5); Triglycerides 84 mg/dL (<150); Uric Acid 3.6 mg/dL (2.5-8.0)
[2020-06-11] MEDS: SENNOSIDES/DOCUSATE SODIUM 1 TAB TABLET PO SCH (21:03)
[2020-06-11] MEDS: MELATONIN 3 MG TABLET PO PRN (21:03)
--- NOTE | 2020-06-11 22:45 | Internal Med Progress Note ---
SUBJECTIVE Subjective Patient information: Note initiated : 06/11/20 at 10:44 pm Service Date, if different from initiated Date: [] Patient: Kristi Kennedy a 84 y/o M admitted on 06/07/20 for Weakness Since 1030. Chief Complaint: History of present illness: Mr. Kennedy is a 84 year old M with a history of dementia/hypertension who lives with his Shelbie in a trailer. He was in his baseline state of health until this morning while coming out of the trailer patient started experiencing shaking chills. patient is normally incontinent and uses depends. Shelbie later found blood in his diapers. Over the next few hours patient became increasingly weak confused and lethargic. Patient was brought in for further evaluation. Initial work-up in the ER was consistent with complicated UTI, fever 104, white count 17,000 consistent with sepsis with endorgan dysfunction. Cultures were drawn and antibiotics initiated. Patient was started on crystalloids and subsequently hospitalist service was consulted At the time of my evaluation patient is accompanied with his Shelbie. She is able to answer most the question. Patient has underlying dementia and unable to provide a detailed history. However he was able to provide answers review of systems and denies diarrhea, headache, photophobia endorses to myalgia, shaking chills and fever. 06/08-patient clinically improving. White count down to 13.5. Gram-negative martín on blood cultures. Likely source urinary infection. Renal ultrasound no evidence of obstructive uropathy. Stable hemodynamics. T-max 104.2. Map at goal. Continue antibiotic coverage and de-escalate based on sensitivities. 06/09-patient doing a lot better. Ongoing physical therapy. White count downtrending. GNR on cultures. Sensitivities pending. No overnight fever chills, T-max 100.4. Anticipate discharge to SNF in 48 hours pending clinical improvement. 06/10-patient doing well. Clinical improvement on antibiotic coverage. Target additional 5 days antibiotic. Possible discharge to SNF in 24 hours. at bedside. No overnight events or concerns per staff. 06/11-patient doing a lot better. Afebrile. Denies abdominal pain. Mentation at baseline. Anticipate discharge to SNF in 24 hours. Case management aggressively coordinating transfer. No additional concerns per nursing staff Constitutional Vitals: No other concerns per nursing staff.Vital Signs Temp Pulse Resp BP Pulse Ox 98.3 F 85 12 150/83 93 06/11/20 19:00 06/11/20 19:00 06/11/20 19:00 06/11/20 19:00 06/11/20 19:00 Period Temp Pulse Resp BP Sys/Calvin Pulse Ox Last 24 Hr 97.4 F-99.1 F 52-85 12-22 121-169/62-86 93-97 Intake and Output 06/11/20 06/11/20 06/12/20 13:59 21:59 05:59 Intake Total 1010 Output Total 1 1 Balance 1009 -1 Weight 62.051 kg Patient Weight 06/12/20 05:59 Weight 62.051 kg Alert but disoriented nonlabored breathing No anxiety Nondistended abdomen Intake & Output: Intake & Output 06/11/20 06/11/20 06/12/20 13:59 21:59 05:59 Intake Total 1010 Output Total 1 1 Balance 1009 -1 Weight 62.051 kg Intake: Oral 1010 Output: Void Amount 0 # of times incontinent of urine 1 1 Other: Meal Lunch Dinner Percent of Meal Consumed 100% Feeding Ability Needs Supervision Assist with Tray Set Up Stool Size Moderate Small Stool Color Brown Brown Yellow Stool Consistency Soft Soft Liquid # Bowel Movements 1 1 # of times incontinent of 1 1 Bowels OBJ DATA Labs CBC & Chem 7: 06/11/20 05:31 06/11/20 05:31 Labs: Abnormal Lab Results 06/11/20 06/11/20 06/10/20 05:31 05:31 13:52 WBC RBC 3.79 L Hgb 11.7 L Hct 34.5 L MPV Seg Neutrophils % Lymphocytes % Monocytes % (Manual) 14 H Reactive Lymphocytes Glucose 148 H Calcium 8.2 L Phosphorus GGT 6 L Lactate Dehydrogenase Total Protein 5.8 L Albumin 3.1 L 06/10/20 06/09/20 06/09/20 13:52 20:10 20:10 WBC RBC 4.31 L 3.97 L Hgb 13.4 L 12.2 L Hct 40.1 L 36.8 L MPV 10.7 H Seg Neutrophils % 79 H Lymphocytes % 12 L 8 L Monocytes % (Manual) Reactive Lymphocytes 3 H Glucose Calcium Phosphorus 2.4 L GGT Lactate Dehydrogenase 228 H Total Protein Albumin 06/09/20 06/09/20 06:21 06:21 WBC 11.1 H RBC 4.00 L Hgb 12.4 L Hct 36.7 L MPV Seg Neutrophils % 83 H Lymphocytes % 10 L Monocytes % (Manual) Reactive Lymphocytes Glucose Calcium Phosphorus 2.3 L GGT 7 L Lactate Dehydrogenase Total Protein Albumin Meds: Medications Acetaminophen (Tylenol) 650 mg PO Q4-6HP PRN; Protocol PRN Reason: Per Pain Protocol/Fever > 101 Last Admin: 06/08/20 17:15 Dose: 650 mg Documented by: Bisacodyl (Dulcolax) 10 mg [place] Q2-3DAYS PRN PRN Reason: Constipation Docusate Sodium (Colace) 100 mg PO BID [facility] Last Admin: 06/11/20 21:03 Dose: Not Given Documented by: Donepezil HCl (Aricept) 10 mg PO QDAY [facility] Last Admin: 06/11/20 08:25 Dose: 10 mg Documented by: Heparin Sodium (Porcine) (Heparin) 5,000 unit SQ Q12 [facility] Last Admin: 06/11/20 21:02 Dose: 5,000 unit Documented by: Potassium Chloride 40 meq/ (Dextrose) 520 mls @ 130 mls/hr IV UD PRN PRN Reason: K+ = or < 3.5 Acetaminophen (Ofirmev) 650 mg in 65 mls @ 130 mls/hr IV Q6HP PRN; Protocol PRN Reason: Per Pain Protocol/Fever > 101 Magnesium Sulfate (Magnesium Sulfate) 2 gm in 50 mls @ 50 mls/hr IV UD PRN PRN Reason: MG = or < 1.7 Levofloxacin (Levaquin) 750 mg in 150 mls @ 100 mls/hr IV Q48H [facility]; Protocol Last Admin: 06/11/20 08:24 Dose: 100 mls/hr Documented by: Iron Carb/Multivit/[place]/Folic Acid (Multivitamin W/Minerals) 1 tab PO DAILY [facility] Last Admin: 06/11/20 08:25 Dose: 1 tab Documented by: Levothyroxine Sodium (Synthroid) 75 mcg PO ACB [facility] Last Admin: 06/11/20 08:26 Dose: 75 mcg Documented by: Lisinopril (Zestril) 10 mg PO QDAY [facility] Last Admin: 06/11/20 08:25 Dose: 10 mg Documented by: Melatonin (Melatonin 3mg Tablet) 3 mg PO HSP PRN PRN Reason: Insomnia Last Admin: 06/11/20 21:03 Dose: 3 mg Documented by: Memantine (Namenda) 10 mg PO BID [facility] Last Admin: 06/11/20 21:03 Dose: 10 mg Documented by: Ondansetron HCl (Zofran Odt) 4 mg SL Q4-6HP PRN; Protocol PRN Reason: Nausea And Vomiting Ondansetron HCl (Zofran) 4 mg IV Q4-6HP PRN; Protocol PRN Reason: Nausea And Vomiting Polyethylene Glycol (Miralax) 17 gm PO DAILYP PRN PRN Reason: Constipation Potassium Chloride (Klor-Con) 40 meq PO DAILYP PRN PRN Reason: K+ < 3.5 Senna/Docusate Sodium (Senna Plus Tablet) 1 tab PO HS [facility] Last Admin: 06/11/20 21:03 Dose: Not Given Documented by: Sodium Chloride (Saline Flush) 10 ml IV Q8 [facility] Last Admin: 06/11/20 15:37 Dose: Not Given Documented by: Tamsulosin HCl (Flomax) 0.4 mg PO QDAY [facility] Last Admin: 06/11/20 08:25 Dose: 0.4 mg Documented by: A/P Narrative A/P Narrative: * Severe sepsis with endorgan dysfunction. Clinical resolution noted * E. coli bacteremia continue quinolone day 12/29 * Complicated E. coli UTI continue antibiotic coverage. Renal ultrasound negative for obstructive uropathy. * Hematuria-resolved. Renal ultrasound no evidence of mass lesion or obstructive uropathy * Dementia continue donepezil/memantine * BPH on tamsulosin * Hypothyroid continue thyroxine * History of hypertension continue lisinopril * History of shingles. No acute flare * Full code * Prophylax Heparin Plan * Antibiotic day 58 * Continue delirium and fall watch * PT OT nutrition support * Await SNF transfer * Pre-existing medical condition management to continue home medications Time Spent With Patient Time: Total time spent is greater than 50% in coordination of care (as documented) at patient's floor/unit and/or counseling patient: QUALITY VTE Deep Vein Thrombosis/Pulmonary Embolism Present on Admission: No
[2020-06-12] MEDS: 0.9 % SODIUM CHLORIDE 10 ML SYRINGE IV SCH (06:22)
[2020-06-12] MEDS: LEVOTHYROXINE 75 MCG TABLET PO SCH (07:20)
[2020-06-12 09:00] LABS: ALT/SGPT 16 U/L (<40); AST/SGOT 32 U/L (<40); Albumin 3.1 gm/dL (3.2-5.2); Albumin/Globulin Ratio 0.9 (1.0-2.3); Alkaline Phosphatase 58 U/L (39-117); Bilirubin,Direct < 0.2 mg/dL (<0.3); Bilirubin,Total 0.3 mg/dL (0.1-1.0); Blood Urea Nitrogen 13 mg/dL (8-23); Calcium 8.5 mg/dL (8.6-10.4); Carbon Dioxide 20 mmol/L (22-30); Chloride 102 mmol/L (96-108); Globulin 3.3 gm/dL (2.2-3.7); Glomerular Filtration Rate 78; Glucose 78 mg/dL (70-105); Lactate Dehydrogenase 271 U/L (135-225); Phosphorous 2.9 mg/dL (2.5-4.5); Triglycerides 98 mg/dL (<150); Uric Acid 4.1 mg/dL (2.5-8.0)
[2020-06-12] MEDS: MULTIVIT,THER IRON,CA,FA & MIN 1 TABLET PO SCH (09:01)
[2020-06-12] MEDS: MEMANTINE 10 MG TABLET PO SCH (09:02)
[2020-06-12] MEDS: TAMSULOSIN 0.4 MG CAPSULE PO SCH (09:02)
[2020-06-12] MEDS: DONEPEZIL 10 MG TABLET PO SCH (09:02)
[2020-06-12] MEDS: DOCUSATE SODIUM 100 MG CAPSULE PO SCH (09:02)
[2020-06-12] MEDS: HEPARIN 5,000 UNIT/ML VIAL SQ SCH (09:03)
[2020-06-12] MEDS: LISINOPRIL 10 MG TABLET PO SCH (09:03)
[2020-06-12 09:06] LABS: Eosinophils % (Manual) 2 % (0-7); Hematocrit 40.4 % (41.0-55.0); Hemoglobin 13.3 g/dL (13.5-16.5); Lymphocytes % 16 % (15-49); Mean Cell Volume 93.7 fL (80.0-100.0); Mean Corpuscular HGB Conc 32.9 g/dL (31.0-36.0); Mean Platelet Volume 10.1 fL (7.4-10.4); Monocytes % (Manual) 12 % (1-12); Platelet Count 216 K/mcL (140-440); Platelet Estimate NORMAL (Normal); RBC 4.31 M/mcL (4.50-5.90); RBC Morphology NORMAL (Normal); Red Cell Distribution Width 13.1 % (11.5-14.5); Segmented Neutrophils % 70 % (38-78); WBC 8.4 K/mcL (4.5-11.0)
== END 2020-06-12 14:01 | DRG 872 ==
LOC: ED 14:34 → MEDSUR 20:23
PROVIDERS: ADMIT Internal Medicine; ATTEND Internal Medicine